=== PATIENT | female | born 1975 | race Caucasian/White ===

== ENCOUNTER 2021-03-12 14:11 | Emergency (ER) | payer MEDICAID, OTHER ==
[2021-03-12] MEDS ORDERED: Benzonatate 100 MG Cap PO ONE (15:26)
--- NOTE | 2021-03-12 15:28 | EDM.PDOC ---
ED HPI GENERAL MEDICAL PROBLEM - General Chief Complaint: Respiratory Problem Stated Complaint: COVID POSS - DIFF. BREATHING Time Seen by Provider: 03/12/21 15:26 Source of Information: Reports: Patient, RN Notes Reviewed History Limitations: Reports: No Limitations - History of Present Illness INITIAL COMMENTS - FREE TEXT/NARRATIVE: 35-year-old female presents emergency department day complaint of shortness of breath she was recently diagnosed COVID-19 she is on day 9 of symptoms had positive tests 5 days ago. Chest Pain Score (Numeric/FACES): 5 - Related Data Allergies Allergy/AdvReac Type Severity Reaction Status Date / Time No Known Allergies Allergy Verified 03/12/21 15:04 Home Meds: Home Meds Ethinyl Estradiol/Drospirenone [Britni 28] 1 tab PO DAILY 03/12/21 [History] Past Medical History HEENT History: Reports: Allergic Rhinitis, Impaired Vision [employer] History: Reports: Social & Family History - Tobacco Use Tobacco Use Status *Q: Never Tobacco User - Caffeine Use Caffeine Use: Reports: Coffee - Recreational Drug Use Recreational Drug Use: No ED ROS GENERAL - Review of Systems Review Of Systems: See Below Constitutional: Reports: Weakness, Fatigue. Denies: Fever HEENT: Reports: No Symptoms Respiratory: Reports: Shortness of Breath Cardiovascular: Reports: Dyspnea on Exertion GI/Abdominal: Reports: No Symptoms Musculoskeletal: Reports: Muscle Pain ED EXAM, GENERAL - Physical Exam Exam: See Below Exam Limited By: No Limitations General Appearance: Alert, WD/WN, No Apparent Distress Respiratory/Chest: No Respiratory Distress, Lungs Clear, Normal Breath Sounds, No Accessory Muscle Use, Chest Non-Tender Cardiovascular: Regular Rate, Rhythm, No Murmur Course - Vital Signs Last Recorded V/S: Last Vital Signs Temp 98.7 F 03/12/21 15:01 Pulse 88 03/12/21 15:01 Resp 20 03/12/21 15:01 BP 139/90 03/12/21 15:01 Pulse Ox 96 03/12/21 15:01 - Orders/Labs/Meds Orders: Active Orders 24 hr Category Date Time Status Acetaminophen [TylenoL] Med 03/12/21 16:15 Active 650 mg PO ONETIME PRN Casirivimab/Imdevimab [Regen-Cov 600-600 mg/10Ml (Eua)] Med 03/12/21 16:15 Once 10 ml SUBCUT ONETIME ONE EPINEPHrine [Adrenalin] Med 03/12/21 16:15 Active 0.3 mg IM ONETIME PRN Famotidine [Pepcid] Med 03/12/21 16:15 Active 20 mg IV ONETIME PRN diphenhydrAMINE [Benadryl] Med 03/12/21 16:15 Active 50 mg IVPUSH ONETIME PRN methylPREDNISolone Sod Succ [Solu-MEDROL] Med 03/12/21 16:15 Active 125 mg IVPUSH ONETIME PRN Medication Orders Acetaminophen (Acetaminophen 325 Mg Tab) 650 mg PO ONETIME PRN PRN Reason: HEADACHE,CHILLS Diphenhydramine HCl (Diphenhydramine 50 Mg/Ml Sdv) 50 mg IVPUSH ONETIME PRN PRN Reason: ALLERGIC RXN Epinephrine HCl (Epinephrine 1 Mg/Ml Sdv) 0.3 mg IM ONETIME PRN PRN Reason: ALLERGIC RXN Famotidine (Famotidine 20 Mg/2 Ml Sdv) 20 mg IV ONETIME PRN PRN Reason: ALLERGIC RXN Methylprednisolone Sodium Succinate (Methylprednisolone Sodium Succinate 125 Mg/2 Ml Sdv) 125 mg IVPUSH ONETIME PRN PRN Reason: ALLERGIC RXN Meds: Medications Generic Name Dose Route Start Last Admin Trade Name Freq PRN Reason Stop Dose Admin Acetaminophen 650 mg 03/12/21 16:15 Acetaminophen 325 Mg Tab PO ONETIME PRN HEADACHE,CHILLS Diphenhydramine HCl 50 mg 03/12/21 16:15 Diphenhydramine 50 Mg/Ml Sdv IVPUSH ONETIME PRN ALLERGIC RXN Epinephrine HCl 0.3 mg 03/12/21 16:15 Epinephrine 1 Mg/Ml Sdv IM ONETIME PRN ALLERGIC RXN Famotidine 20 mg 03/12/21 16:15 Famotidine 20 Mg/2 Ml Sdv IV ONETIME PRN ALLERGIC RXN Methylprednisolone Sodium Succinate 125 mg 03/12/21 16:15 Methylprednisolone Sodium Succinate 125 Mg/2 Ml Sdv IVPUSH ONETIME PRN ALLERGIC RXN Discontinued Medications Generic Name Dose Route Start Last Admin Trade Name Freq PRN Reason Stop Dose Admin Benzonatate 200 mg 03/12/21 15:26 Benzonatate 100 Mg Cap PO 03/12/21 15:27 ONETIME ONE Departure - Departure Time of Disposition: 16:10 Disposition: Home, Self-Care 01 Condition: Fair Clinical Impression: COVID-19 - Discharge Information Instructions: 10 Things You Can Do to Manage Your COVID-19 Symptoms at Home - [facility] (12/28/2020) Referrals: Brian Cantor MD [Primary Care Provider] - Forms: ED Department Discharge Additional Instructions: Continue with your regular medications please followup with your primary care provider in 3-5 days if not better, please call return to the emergency department with worsening of symptoms., Sepsis Event Note (ED) - Evaluation Sepsis Screening Result: No Definite Risk - Focused Exam Vital Signs: Vital Signs Temp Pulse Resp BP Pulse Ox 03/12/21 15:01 98.7 F 88 20 139/90 96 - My Orders Last 24 Hours: My Active Orders 03/12/21 16:15 Acetaminophen [TylenoL] 650 mg PO ONETIME PRN Casirivimab/Imdevimab [Regen-Cov 600-600 mg/10Ml (Eua)] 10 ml SUBCUT ONETIME ONE EPINEPHrine [Adrenalin] 0.3 mg IM ONETIME PRN Famotidine [Pepcid] 20 mg IV ONETIME PRN diphenhydrAMINE [Benadryl] 50 mg IVPUSH ONETIME PRN methylPREDNISolone Sod Succ [Solu-MEDROL] 125 mg IVPUSH ONETIME PRN - Assessment/Plan Last 24 Hours: My Active Orders 03/12/21 16:15 Acetaminophen [TylenoL] 650 mg PO ONETIME PRN Casirivimab/Imdevimab [Regen-Cov 600-600 mg/10Ml (Eua)] 10 ml SUBCUT ONETIME ONE EPINEPHrine [Adrenalin] 0.3 mg IM ONETIME PRN Famotidine [Pepcid] 20 mg IV ONETIME PRN diphenhydrAMINE [Benadryl] 50 mg IVPUSH ONETIME PRN methylPREDNISolone Sod Succ [Solu-MEDROL] 125 mg IVPUSH ONETIME PRN Plan: Assessment Acuity = acute Site and laterality = viral syndrome Etiology = COVID-19 Manifestations = dyspnea Location of injury = Home Lab values = none Plan Because she is within 10 days likely treat empirically with monoclonal antibody treatment she was willing to proceed the fact therefore we will get that today follow-up with primary care as needed return to the emergency department This note was dictated using [employer] voice recognition software please call with any questions on syntax or grammar.
[2021-03-12] MEDS ORDERED: Famotidine 20 MG/2 ML SDV IV PRN (16:15)
[2021-03-12] MEDS ORDERED: diphenhydrAMINE 50 MG/ML SDV IVPUSH PRN (16:15)
[2021-03-12] MEDS ORDERED: EPINEPHrine 1 MG/ML SDV IM PRN (16:15)
[2021-03-12] MEDS ORDERED: Acetaminophen 325 MG Tab PO PRN (16:15)
[2021-03-12] MEDS ORDERED: methylPREDNISolone Sodium Succinate 125 MG/2 ML SDV IVPUSH PRN (16:15)
[2021-03-12 16:17] VITALS: PULSE 68
[2021-03-12 16:30] VITALS: BP 124/78
== END 2021-03-12 17:15 | disposition home or self-care (01) ==
LOC: JP.ED 14:11
DX: U07.1 COVID-19 (principal)
CPT/HCPCS: 99284; A9270; M0243; Q0243